=== PATIENT | female | born 1995 | race Two or more races ===

== ENCOUNTER 2022-03-04 06:18 | Inpatient (IN) | payer OTHER ==
[~2022-03-04] VITALS: Ht 157.5 cm; Wt 68.9 kg
[2022-03-04] MEDS ORDERED: PRENATAL TABLE1 EAC1 PO (06:45)
[2022-03-04] MEDS ORDERED: FOLIC ACID1 MG (09:23)
== END 2022-03-06 11:25 | disposition home or self-care (01) | DRG 807 ==
LOC: LDR 06:18 → SURG-SUITE 06:18 → LDR 06:55 → SURG-SUITE 18:20 → LDR 03-09 16:06
PROVIDERS: ADMIT Obstetrics & Gynecology; ATTEND Obstetrics & Gynecology
PROC: 10E0XZZ Delivery of Products of Conception, External Approach (ICD-10-PCS; principal; 2022-03-04)
PROC: 0UQG7ZZ Repair Vagina, Via Natural or Artificial Opening (ICD-10-PCS; 2022-03-04)
PROC: 4A1HXCZ Monitoring of Products of Conception, Cardiac Rate, External Approach (ICD-10-PCS; 2022-03-04)
DX: O71.4 Obstetric high vaginal laceration alone (principal); Z37.0 Single live birth; Z3A.39 39 weeks gestation of pregnancy; Z20.822 Contact with and (suspected) exposure to COVID-19

== ENCOUNTER 2022-06-05 06:58 | Day surgery (SDC) | payer OTHER ==
[~2022-06-05] VITALS: Ht 157.5 cm; Wt 56.7 kg
[~2022-06-05 06:58] MED LIST: FOLIC ACID1 MG; PRENATAL TABLE1 EAC1 PO
== END 2022-06-05 14:20 | disposition home or self-care (01) ==
LOC: CIR.AMB 06:58
PROVIDERS: ATTEND Obstetrics & Gynecology
DX: Z30.2 Encounter for sterilization (principal); Z87.891 Personal history of nicotine dependence; N73.6 Female pelvic peritoneal adhesions (postinfective)